=== PATIENT | male | born 1980 | race Caucasian/White ===

== ENCOUNTER 2018-04-17 11:58 | Outpatient (CLI) | payer OTHER ==
[~2018-04-17 11:58] MED LIST: BUFFERED LIDOCAINE 10 ML SYRINGE ONE; GADOPENTETATE DIMEGLUMINE 5 ML VIAL IVP ONE; IOTHALAMATE MEGLUMINE 50 ML VIAL ONE
[2018-04-17] MEDS ORDERED: IOTHALAMATE MEGLUMINE 50 ML VIAL ONE (12:31)
[2018-04-17] MEDS ORDERED: GADOPENTETATE DIMEGLUMINE 5 ML VIAL IVP ONE ×2 (12:32→13:30)
[2018-04-17] MEDS ORDERED: BUFFERED LIDOCAINE 10 ML SYRINGE ONE (12:32)
[2018-04-17] MEDS ORDERED: IOTHALAMATE MEGLUMINE 50 ML VIAL IVP ONE (13:30)
[2018-04-17] MEDS ORDERED: BUFFERED LIDOCAINE 10 ML SYRINGE IU ONE (13:30)
--- NOTE | 2018-04-17 14:39 | XRAY Report ---
Reason: PAIN IN LEFT KNEE Procedure Date: 04/17/2018 Accession Number: [id number] / [id number] Procedure: [place] - Arthrogram Needle Placement CPT Code: FULL RESULT: EXAM: LEFT KNEE ARTHROGRAPHIC INJECTION WITH FLUOROSCOPIC GUIDANCE. EXAM DATE: 04/17/2018 01:28 PM. CLINICAL HISTORY: Pain in left knee. COMPARISON: None. TECHNIQUE: The risks, benefits, and alternatives of the procedure were discussed with the patient. All questions were answered. Written and verbal consent were obtained. The knee joint was marked under fluoroscopy and prepped and draped in a sterile manner. Local anesthesia was performed with 1% lidocaine. A 22-gauge needle was then inserted into the knee joint. 20 mL of a solution containing 50% iodinated contrast and a 1:200 dilution of gadolinium contrast in sterile saline was then injected. The needle was removed without immediate complication. Other: None. Fluoroscopy Time: 2 minutes 7 seconds. Number of Images: 2. FINDINGS: Bones and joints: No fracture or subluxation. Injection: Fluoroscopic images demonstrate needle placement and contrast in the knee joint. IMPRESSION: Successful fluoroscopically guided arthrographic injection of the knee. [facility]
--- NOTE | 2018-04-19 11:02 | MRI Report ---
Reason: PAIN IN LEFT KNEE Procedure Date: 04/17/2018 Accession Number: [id number] / [id number] Procedure: MRI - Arthrogram Knee LT CPT Code: FULL RESULT: EXAM: LEFT KNEE MRI ARTHROGRAM WITH CONTRAST EXAM DATE: 04/17/2018 02:18 PM. CLINICAL HISTORY: Pain in left knee. COMPARISON: ARTHROGRAM 04/17/2018 1:15 PM. TECHNIQUE: Multiplanar, multisequence T1-weighted and fluid-sensitive sequences of the knee after an arthrographic injection of dilute gadolinium, dictated under a separate exam. Other: None. FINDINGS: Bones: No fractures or subluxations. No marrow edema. No bone lesions. Articular Cartilage: Severe chondromalacia patella. Trochlear groove articular cartilage is negative for contrast signal defect. Mild chondromalacia posterior aspect of medial femoral condyle. Medial Meniscus: Complex tear posterior horn medial meniscus. Radial tear one-half with medial meniscus body. Probable vertical tear anterior horn medial meniscus. Lateral Meniscus: The lateral meniscus is intact. Cruciate Ligaments: The anterior and posterior cruciate ligaments are intact. Collateral Ligaments: The medial collateral and lateral collateral ligamentous structures are intact. Tendons: The quadriceps, patellar, semimembranosus, and popliteus tendons are unremarkable. Musculature: No edema or fatty atrophy. Other: No popliteal cyst. No loose bodies. The medial and lateral retinacula are intact. The subcutaneous tissues and fat pads are unremarkable. IMPRESSION: 1. Complex tear posterior horn medial meniscus. 2. Radial tear medial meniscus body and probable vertical tear anterior horn medial meniscus. 3. Severe chondromalacia patella. [facility] MUSCULOSKELETAL RADIOLOGY SECTION
== END 2018-04-17 11:59 | disposition home or self-care (01) ==
LOC: DI 11:58
PROVIDERS: ATTEND Student in an Organized Health Care Education/Training Program
DX: S83.232A Complex tear of medial meniscus, current injury, left knee, initial encounter (principal); M22.42 Chondromalacia patellae, left knee
CPT/HCPCS: 27369; 73722; 77002; Q9961